=== PATIENT | female | born 1945 | race Asian ===

== ENCOUNTER 2019-06-05 19:40 | Emergency (ER) | payer MEDICAID ==
[~2019-06-05] VITALS: Ht 162.6 cm; Wt 63.5 kg
[2019-06-05 19:44] VITALS: BP_SYST 131
--- NOTE | 2019-06-05 19:44 | NUR ---
Pt placed to ER bed 01, to gown, to emergency department coordinator. Pt report given to BENJAMIN Moise.
--- NOTE | 2019-06-05 20:00 | NUR ---
Pt BIB EMS with with c/o abdominal pain. Pt speaks Mandarin only. Pt daughter and at bedside. Pt A&Ox4. Pt states abdominal pain 10/10. Pt states abdominal pain began at 4 pm. Pt states nausea and vomiting presented 2 hours after eating. Pt states pain in lower left quadrant of abdomen. Pt unable to desribed pain. Pt crying in pain. Will continue to monitor.
--- NOTE | 2019-06-05 20:07 | NUR ---
Assisted pt to restroom. Will continue to monitor.
--- NOTE | 2019-06-05 20:40 | NUR ---
Dr. Thornton at bedside.
[2019-06-05] MEDS ORDERED: NACL 0.9% 1,000 ML IV ONE (20:46)
[2019-06-05] MEDS ORDERED: ONDANSETRON HCL 4 MG/2 ML VIAL IVP ONE (21:00)
[2019-06-05] MEDS ORDERED: MORPHINE 4 MG/ML INJ. SYRINGE IVP ONE ×2 (21:00→22:45)
[2019-06-05] MEDS ORDERED: DIPHENHYDRAMINE INJ 50 MG/ML VIAL IVP ONE (21:00)
[2019-06-05] MEDS ORDERED: PANTOPRAZOLE SODIUM 40 MG/VIAL (PROTONIX) IVP ONE (21:00)
--- NOTE | 2019-06-05 21:00 | NUR ---
# 20 gauge angiocath placed to left AC. Use of asceptic technique. Opsite placed over site. Blood return noted. Blood for lab drawn from site. Flushed with 10 cc of normal saline. No evidence of infiltration noted. Patient tolerated well.
--- NOTE | 2019-06-05 21:15 | NUR ---
Pt medicated per MD orders. Pt tolerated well. Will continue to monitor.
[2019-06-05 21:21] LABS: BASOPHILS % (AUTO) 0.3 % (0.0-2.0); HEMATOCRIT 40.6 % (36-48); HEMOGLOBIN 13.3 g/dL (12.0-16.0); LYMPHOCYTES # (AUTO) 0.9 K/uL (1.0-5.5); LYMPHOCYTES % (AUTO) 7.3 % (20.5-51.5); MEAN CORPUSCULAR HEMOGLOBIN 30 pg (27-31); MEAN CORPUSCULAR HGB CONC 33 % (32-36); MEAN CORPUSCULAR VOLUME 91 fL (79.0-98.0); MONOCYTES # (AUTO) 0.4 K/uL (0.0-1.0); NEUTROPHILS # (AUTO) 11.2 K/uL (1.8-7.7); NEUTROPHILS % (AUTO) 89.4 % (40.0-70.0); PLATELET COUNT (AUTO) 228 K/uL (130-430); RED BLOOD CELL COUNT(AUTO) 4.44 MIL/uL (4.2-6.2); WHITE BLOOD COUNT (AUTO) 12.5 K/uL (4.8-10.8)
--- NOTE | 2019-06-05 21:24 | NUR ---
Pt off unit to radiology via [place] in stable condition.
[2019-06-05 21:31] LABS: BILIRUBIN,URINE NEGATIVE (NEGATIVE); BLOOD, URINE 2+ (NEGATIVE); COLOR,URINE YELLOW (YELLOW); GLUCOSE,URINE NEGATIVE (NEGATIVE); KETONES,URINE TRACE (NEGATIVE); LEUKOCYTE ESTERASE ,URINE 1+ (NEGATIVE); NITRITE, URINE NEGATIVE (NEGATIVE); PROTEIN URINE TRACE (NEGATIVE); UROBILINOGEN,URINE 0.2 (0.2-1.0)
[2019-06-05 21:36] LABS: CLARITY/URINE HAZY (CLEAR)
--- NOTE | 2019-06-05 21:40 | NUR ---
Pt returned to ER bed 1 via [facility] in stable condition. Will continue to monitor.
[2019-06-05 21:41] LABS: ANION GAP 10 (5-15); CALCIUM 8.8 mg/dL (8.4-11.0); CHLORIDE 101 mmol/L (98-107); GLUCOSE 141 mg/dL (70-99); POTASSIUM 3.4 mmol/L (3.5-5.1); SODIUM SERUM 137 mmol/L (136-145); UREA NITROGEN, BLOOD 27 mg/dL (8-21)
[2019-06-05 21:43] LABS: BACTERIA,URINE MODERATE /HPF (None Seen); WBC,URINE 50-80 /HPF (0-3)
[2019-06-05 21:44] LABS: CALCIUM OXALATE CRYSTALS,UR 0-10 /HPF (None Seen); MUCUS,URINE 1+ /LPF (None Seen)
[2019-06-05 21:47] LABS: ALANINE AMINOTRANSFERASE 25 U/L (12-78); ALBUMIN 4.1 g/dL (3.4-4.8); ASPARTATE AMINOTRANSFERASE 18 U/L (10-37); LIPASE 165 U/L (73-393); TOTAL BILIRUBIN 0.6 mg/dL (0.0-1.0)
--- NOTE | 2019-06-05 22:30 | NUR ---
Pt resting in bed with daughter at bedside. Will continue to monitor.
[2019-06-05] MEDS ORDERED: cefTRIAXone 1 GM IVPB PREMIX 50 ML IV ONE (22:45)
--- NOTE | 2019-06-05 23:05 | NUR ---
BENJAMIN Mckeon medicated pt per MD orders.
--- NOTE | 2019-06-06 | NUR ---
Patient to be transferred to [facility]. Is being transferred due to insurance. Receiving facility has accepting physician and available space. ER physician has signed transfer form. Patient or responsible libertarian has agreed to transfer and signed form. Patient belongings inventoried and will be sent with patient. Copy of nursing notes, lab reports, EKG, Physicians Orders and X-rays to be sent with patient. Report called to BENJAMIN Grant at receiving facility. Receiving physician is [facility] been called for transfer. ETA is [id number].
[2019-06-06 00:45] VITALS: BP_SYST 125
== END 2019-06-06 00:45 | disposition other institution (70) ==
LOC: SED 19:40
DX: N39.0 Urinary tract infection, site not specified (principal); I10 Essential (primary) hypertension
CPT/HCPCS: 36415; 74176; 80053; 81000; 83605; 83690; 85025; 87040; 87086; 96361; 96365; 96375; 96376; 99285; C9113; J0696; J1200; J2270; J2405; J7030